=== PATIENT | female | born 1985 | race Caucasian/White ===

== ENCOUNTER 2019-04-25 14:03 | Emergency (ER) | payer OTHER ==
[~2019-04-25] VITALS: Ht 154.9 cm; Wt 52.0 kg
[2019-04-25 14:03] VITALS: BP 95/62
[2019-04-25] MEDS ORDERED: NAPROXEN 500 MG TABLET ONE (14:36)
[2019-04-25] MEDS ORDERED: NAPR-695 PO (14:39)
--- NOTE | 2019-04-25 14:39 | PHYS DOC ---
Past History Past Medical History: No Pertinent History Past Surgical History: No Surgical History Smoking: Non-smoker Alcohol Use: Occasionally Drug Use: None Adult General Chief Complaint Chief Complaint: FINGER INJURY HPI HPI Patient is a 33-year-old female presents with left index finger burn while she was taking a turkey out of the oven. She was using oven minutes but felt the heat through the minute. She is left-hand dominant. No significant relief with full water. She did not take any medicines other than acetaminophen which provided no relief, because she is breast-feeding her 5-month-old infant at home. She denies any numbness or tingling. Tetanus status is up-to-date. No weak ness. Pain is moderate in intensity.[] Review of Systems Review of Systems Constitutional: Denies fever or chills [] Eyes: Denies change in visual acuity, redness, or eye pain [] HENT: Denies nasal congestion or sore throat [] Respiratory: Denies cough or shortness of breath [] Cardiovascular: No chest pain or palpitations[] GI: Denies abdominal pain, nausea, vomiting, bloody stools or diarrhea [] : Denies dysuria or hematuria [] Musculoskeletal: Denies back pain or joint pain [] Integument: See history of present illness[] Neurologic: Denies headache, focal weakness or sensory changes [] Endocrine: Denies polyuria or polydipsia [] All other systems were reviewed and found to be within normal limits, except as documented in this note. Allergies Allergies Allergies Coded Allergies Type Severity Reaction Last Updated Verified Sulfa (Sulfonamide Antibiotics) Allergy Unknown 04/25/19 Yes Physical Exam Physical Exam Constitutional: Well developed, well nourished, no acute distress, non-toxic appearance. [] HENT: Normocephalic, atraumatic, bilateral external ears normal, oropharynx moist, no oral exudates, nose normal. [] Eyes: PERRLA, EOMI, conjunctiva normal, no discharge. [] Neck: Normal range of motion, no tenderness, supple, no stridor. [] Cardiovascular:Heart rate regular rhythm, no murmur [] Lungs & Thorax: Bilateral breath sounds clear to auscultation [] Abdomen: Not examined. [] Skin: Warm, dry, there is erythema and blistering on the palmar aspect of her left index finger, distal phalanx, FDS, FDP, and extensor mechanisms are intact. Capillary refills less than 2 seconds. She is distally neurovascularly intact. There is no circumferential burn. [] Back: No tenderness, no CVA tenderness. [] Extremities: No tenderness, no cyanosis, no clubbing, ROM intact, no edema. [] Neurologic: Alert and oriented X 3, normal motor function, normal sensory function, no focal deficits noted. [] Psychologic: Affect normal, judgement normal, mood normal. [] Current Patient Data Vital Signs Vital Signs Date Time Temp Pulse Resp B/P (MAP) Pulse Ox O2 Delivery O2 Flow Rate FiO2 04/25/19 14:03 98.1 78 16 100 Room Air EKG EKG [] Radiology/Procedures Radiology/Procedures [] Course & Med Decision Making Course & Med Decision Making Pertinent Labs and Imaging studies reviewed. (See chart for details) ED course: Patient arrived, was placed in bed, and tolerated exam well. She was given a dose of NSAIDs that are generally agreed upon as being safe in breast- feeding for pain management. Findings and plan were discussed with the patient who voiced understanding. All questions were answered. She was discharged in improved condition.[] Dragon Disclaimer Dragon Disclaimer This electronic medical record was generated, in whole or in part, using a voice recognition dictation system. Departure Departure: Impression: Primary Impression: Partial thickness burn of finger Disposition: 01 HOME, SELF-CARE Condition: IMPROVED Referrals: PCP,UNKNOWN (PCP) Patient Instructions: Burn Care Additional Instructions: Follow-up with your regular doctor in 2-3 days for a wound check. Take the me dication as needed, as prescribed for pain. You may also put aloe vera gel on the burn. Return to the ER if worsening pain, weakness, purulent drainage, or any other concerns. Scripts Naproxen (NAPROXEN) 375 Mg Tablet 1 TAB PO BID for pain for 10 Days, #20 TAB 0 Refills with food Prov: MALOU HARGROVE DO 04/25/19 Problem Qualifiers Primary Impression: Partial thickness burn of finger Encounter type: initial encounter Laterality: left Qualified Codes: T23.222A - Burn of second degree of single left finger (nail) except thumb, initial encounter MALOU HARGROVE DO Apr 25, 2019 14:39
[2019-04-25] MEDS ORDERED: NAPROXEN 500 MG TABLET PO ONE (14:45)
== END 2019-04-25 14:45 | disposition home or self-care (01) ==
LOC: ER 14:03
DX: T23.222A Burn of second degree of single left finger (nail) except thumb, initial encounter (principal); Z88.2 Allergy status to sulfonamides; X17.XXXA Contact with hot engines, machinery and tools, initial encounter; Y93.89 Activity, other specified; Y92.89 Other specified places as the place of occurrence of the external cause; Y99.8 Other external cause status
CPT/HCPCS: 16020; 99284